=== PATIENT | female | born 1960 | race Caucasian/White ===

== ENCOUNTER → 2019-04-17 | Outpatient (CLI) | payer BC ==
[2019-04-17 15:14] LABS: HEMATOCRIT 43.8 % (37.0-47.0); HEMOGLOBIN 14.8 g/dl (12.5-16.0); MEAN CELL VOLUME 91 fl (80.0-100.0); MEAN CORPUSCULAR HEMOGLOBIN 31 pg (27.0-31.0); MEAN CORPUSCULAR HGB CONC 34 g/dl (33.0-37.0); MEAN PLATELET VOLUME 11.5 fl (7.4-10.4); PLATELET COUNT 185 K/mm3 (130-400); RED BLOOD COUNT 4.79 M/mm3 (4.10-5.30); REDCELL DISTRIBUTION WIDTH-CV 12.1 % (11.5-14.5)
[2019-04-17 15:31] LABS: C-REACTIVE PROTEIN 1.6 mg/dL (0.0-0.9); CREATININE, serum 0.66 (0.52-1.25)
[2019-04-17 15:36] LABS: ERYTHROCYTE SEDIMENTATION RATE 6 mm/hr (0-30)
== END ==
LOC: COL.LAB 14:24
DX: M06.4 Inflammatory polyarthropathy (principal)

== ENCOUNTER → 2019-12-05 | Outpatient (CLI) | payer BC | LOC: MC.RAD 08:00 | DX: Z12.31 Encounter for screening mammogram for malignant neoplasm of breast (principal) ==

== ENCOUNTER → 2020-12-12 | Outpatient (CLI) | payer BC | LOC: MC.RAD 15:28 | DX: Z12.31 Encounter for screening mammogram for malignant neoplasm of breast (principal) ==

== ENCOUNTER → 2021-02-21 | Outpatient (CLI) | payer BC ==
[2021-02-21 13:20] LABS: C-REACTIVE PROTEIN 3.8 mg/dL (0.0-0.9); CALCIUM 9.3 mg/dL (8.4-10.2); CREATININE, serum 0.58 (0.52-1.25); URIC ACID 7.7 mg/dL (2.5-6.2)
== END ==
LOC: ZCOL.LAB 12:57
PROVIDERS: Nurse Practitioner Family
DX: M06.4 Inflammatory polyarthropathy (principal)

== ENCOUNTER → 2021-04-07 | Outpatient (CLI) | payer BC ==
[2021-04-07 13:46] LABS: CREATININE, serum 0.57 (0.52-1.25); URIC ACID 6.3 mg/dL (2.5-6.2)
== END ==
LOC: COL.LAB 12:41
PROVIDERS: Nurse Practitioner Family
DX: M10.9 Gout, unspecified (principal)

== ENCOUNTER → 2021-04-21 | Outpatient (CLI) | payer BC ==
[2021-04-21 12:07] LABS: CREATININE, serum 0.7 (0.52-1.25); URIC ACID 5.3 mg/dL (2.5-6.2)
== END ==
LOC: COL.LAB 11:20
PROVIDERS: Nurse Practitioner Family
DX: M10.9 Gout, unspecified (principal)

== ENCOUNTER → 2021-05-26 | Outpatient (CLI) | payer BC ==
[2021-05-26 13:08] LABS: CREATININE, serum 0.64 (0.52-1.25); URIC ACID 4.2 mg/dL (2.5-6.2)
== END ==
LOC: COL.LAB 12:27
PROVIDERS: Nurse Practitioner Family
DX: M10.9 Gout, unspecified (principal)

== ENCOUNTER → 2021-05-29 | Outpatient (REF) | LOC: COL.LAB 08:01 | DX: Z20.822 Contact with and (suspected) exposure to COVID-19 (principal) ==

== ENCOUNTER → 2021-08-19 | Outpatient (CLI) | payer BC | LOC: COL.VAS 08:53 | DX: M79.89 Other specified soft tissue disorders (principal) ==

== ENCOUNTER → 2021-10-31 | Outpatient (CLI) | payer BC ==
[2021-10-31 09:16] LABS: BASO % 0.5 % (0.0-2.0); EOS # 0.3 K/mm3 (0.0-0.7); EOS % 3.1 % (0.0-4.0); GRAN # 5.7 K/mm3 (1.4-6.5); HEMOGLOBIN 14.9 g/dl (12.5-16.0); LYMPH # 1.7 K/mm3 (1.2-3.4); LYMPH % 19.7 % (20.0-51.0); MEAN CELL VOLUME 89 fl (80.0-100.0); MEAN CORPUSCULAR HEMOGLOBIN 31 pg (27-31); MEAN CORPUSCULAR HGB CONC 35 g/dl (33.0-37.0); MEAN PLATELET VOLUME 11.3 fl (7.4-10.4); MONO # 0.9 K/mm3 (0.1-0.6); MONO % 10.2 % (1.7-9.3); PLATELET COUNT 229 K/mm3 (130-400); RED BLOOD COUNT 4.85 M/mm3 (4.10-5.30); REDCELL DISTRIBUTION WIDTH-CV 12.5 % (11.5-14.5)
[2021-10-31 09:30] LABS: ALBUMIN 3.9 gm/dL (3.4-4.8); BILIRUBIN,TOTAL 0.9 mg/dL (0.2-1.2); CREATININE, serum 0.76 mg/dL (0.57-1.11); POTASSIUM 3.2 mmol/L (3.5-4.5)
[2021-10-31 09:31] LABS: MUCOUS Present (NOT PRESENT); PH 5 (5-8); SQUAMOUS EPITHELIAL 0-2 /hpf (0-10); URINE APPEARANCE Hazy (CLEAR/HAZY); URINE BACTERIA Rare (NONE SEEN); URINE BILIRUBIN Negative (NEGATIVE); URINE BLOOD Negative (NEGATIVE); URINE COLOR Yellow (YELLOW); URINE GLUCOSE Negative (NEGATIVE); URINE KETONE Negative (NEGATIVE); URINE LEUKOCYTE ESTERASE Negative (NEGATIVE); URINE NITRATE Negative (NEGATIVE); URINE PROTEIN(semi-quant) Negative (NEGATIVE); URINE RBC 0-2 /hpf (0-2); URINE UROBILINOGEN Negative (NEGATIVE); URINE WBC 0-2 /hpf (0-2)
[2021-10-31 09:50] LABS: THYROID STIMULATING HORMONE 1.045 uIU/mL (0.350-4.940)
[2021-10-31 10:00] LABS: CHOLESTEROL RISK RATIO 3.6
[2021-10-31 10:32] LABS: COLLECTION METHOD CLEAN CATCH
== END ==
LOC: COL.LAB 08:39
PROVIDERS: Internal Medicine
DX: Z00.00 Encounter for general adult medical examination without abnormal findings (principal)

== ENCOUNTER 2022-01-15 06:08 | Day surgery (SDC) | payer BC ==
[~2022-01-15] VITALS: Ht 167.6 cm; Wt 115.9 kg
[2022-01-15] MEDS ORDERED: PLAQUENIL 200M200 MG PO (06:33)
[2022-01-15] MEDS ORDERED: PREDNISONE 2.52.5 MG PO (06:34)
[2022-01-15] MEDS ORDERED: ZYLOPRIM 300MG300 MG PO (06:34)
[2022-01-15] MEDS ORDERED: FOLIC ACID 11 MG/TA1 PO (06:34)
[2022-01-15] MEDS ORDERED: CYMBALTA 60MG60 MG PO (06:35)
[2022-01-15] MEDS ORDERED: ERGOCALCIFER50000 IU PO (06:36)
[2022-01-15] MEDS ORDERED: HYGROTON 2525 MG/TAB PO (06:37)
[2022-01-15] MEDS ORDERED: REDITREX 225 MG/1 ML SQ (06:38)
[2022-01-15 06:52] VITALS: BP 133/88; PULSE 90; TEMP 97.7
[2022-01-15 08:10] VITALS: BP 117/65; PULSE 72; TEMP 97.4
--- NOTE | 2022-01-15 08:10 | NUR ---
Patient arrived back into [facility] from endo procedure room. Sister at bedside. Report recieved from [facility]. Patient doing well. Denies pain or nausea at this time. Patient requesting cranberry juice and crackers.
[2022-01-15 08:18] VITALS: TEMP 97.4
[2022-01-15 08:25] VITALS: BP 119/72; PULSE 71
--- NOTE | 2022-01-15 08:25 | NUR ---
Patient continues to do well. Denies pain or nausea. Vital signs stable. Tolerated food and drink well. Sister at bedside.
--- NOTE | 2022-01-15 08:30 | NUR ---
Dr. Koch previously in room prior to patient coming back to talk to sister about results of colonoscopy. Went through discharge instructions with patient and patient's sister. Both verbalized understanding to education. IV removed without complications.
[2022-01-15 08:40] VITALS: BP 130/75; PULSE 70
--- NOTE | 2022-01-15 08:40 | NUR ---
Patient tolerated food and drink. Went through discharge instructions. IV removed. Vital signs stable. Patient got dressed independently. Escorted to patient entrance via wheelchair. Patient got into personal vehicle and left in the care of her sister.
== END 2022-01-15 08:41 | disposition home or self-care (01) ==
LOC: SDCO 06:08
DX: Z12.11 Encounter for screening for malignant neoplasm of colon (principal); Z86.010 Personal history of colon polyps; Z85.828 Personal history of other malignant neoplasm of skin; Z80.8 Family history of malignant neoplasm of other organs or systems; Z80.42 Family history of malignant neoplasm of prostate
CPT/HCPCS: J2704; J7030

== ENCOUNTER → 2022-03-18 | Outpatient (CLI) | payer BC ==
[~2022-03-18] MED LIST: CYMBALTA 60MG60 MG PO; ERGOCALCIFER50000 IU PO; FOLIC ACID 11 MG/TA1 PO; HYGROTON 2525 MG/TAB PO; PLAQUENIL 200M200 MG PO; PREDNISONE 2.52.5 MG PO; REDITREX 225 MG/1 ML SQ; ZYLOPRIM 300MG300 MG PO
[2022-03-18 17:33] LABS: BASO % 0.3 % (0.0-2.0); EOS # 0.3 K/mm3 (0.0-0.7); EOS % 2.3 % (0.0-4.0); GRAN # 8.5 K/mm3 (1.4-6.5); GRAN % 65.3 % (42.2-75.2); HEMATOCRIT 47.1 % (37.0-47.0); LYMPH # 2.8 K/mm3 (1.2-3.4); LYMPH % 21.7 % (20.0-51.0); MEAN CELL VOLUME 91 fl (80.0-100.0); MEAN CORPUSCULAR HEMOGLOBIN 31 pg (27-31); MEAN CORPUSCULAR HGB CONC 34 g/dl (33.0-37.0); MEAN PLATELET VOLUME 10.9 fl (7.4-10.4); MONO # 1.2 K/mm3 (0.1-0.6); MONO % 9.6 % (1.7-9.3); PLATELET COUNT 268 K/mm3 (130-400); RED BLOOD COUNT 5.18 M/mm3 (4.10-5.30); REDCELL DISTRIBUTION WIDTH-CV 12.7 % (11.5-14.5)
[2022-03-18 17:45] LABS: ALBUMIN 3.9 gm/dL (3.4-4.8); BILIRUBIN,TOTAL 0.8 mg/dL (0.2-1.2); C-REACTIVE PROTEIN 2.33 mg/dL (0.00-0.50); CALCIUM 9.5 mg/dL (8.4-10.2); CREATININE, serum 0.83 mg/dL (0.57-1.11); POTASSIUM 3.2 mmol/L (3.5-4.5); TOTAL PROTEIN 7.1 gm/dL (6.2-8.1)
[2022-03-18 17:54] LABS: ERYTHROCYTE SEDIMENTATION RATE 13 mm/hr (0-30)
== END ==
LOC: COL.LAB 17:10
PROVIDERS: Nurse Practitioner Family
DX: M31.6 Other giant cell arteritis (principal)

== ENCOUNTER → 2022-03-19 | Outpatient (CLI) | payer BC | LOC: COL.RAD 08:01 | DX: I65.23 Occlusion and stenosis of bilateral carotid arteries (principal); M31.6 Other giant cell arteritis | CPT/HCPCS: Q9967 ==

== ENCOUNTER → 2022-04-20 | Outpatient (CLI) | payer BC | LOC: MC.RAD 14:45 | DX: Z12.31 Encounter for screening mammogram for malignant neoplasm of breast (principal) ==

== ENCOUNTER → 2022-06-01 | Outpatient (CLI) | payer BC | LOC: COL.LAB 14:01 | DX: M06.4 Inflammatory polyarthropathy (principal) ==

== ENCOUNTER → 2023-04-16 | Outpatient (REF) | payer BC | LOC: ZCOL.LAB 13:28 | DX: L93.0 Discoid lupus erythematosus (principal) ==